=== PATIENT | male | born 1950 | race Native Hawaiian/Other Pacific Islander ===

== ENCOUNTER 2016-12-21 13:52 | Outpatient (CLI) | payer OTHER | END 2016-12-21 19:09 | disposition home or self-care (01) | LOC: RAD 13:52 | DX: M79.605 Pain in left leg (principal); M25.562 Pain in left knee ==

== ENCOUNTER 2019-04-15 15:06 | Outpatient (CLI) | payer OTHER | END 2019-04-15 19:10 | disposition home or self-care (01) | LOC: RAD 15:06 | DX: R22.43 Localized swelling, mass and lump, lower limb, bilateral (principal); I87.2 Venous insufficiency (chronic) (peripheral) ==

== ENCOUNTER 2019-12-25 14:25 | Outpatient (CLI) | payer OTHER | END 2019-12-25 19:07 | disposition home or self-care (01) | LOC: LAB 14:25 | PROVIDERS: ATTEND Physician Assistant Medical | DX: D64.89 Other specified anemias (principal) | CPT/HCPCS: 85014; 85018 ==

== ENCOUNTER 2020-01-16 15:27 | Outpatient (CLI) | payer OTHER | END 2020-01-16 20:10 | disposition home or self-care (01) | LOC: LAB 15:27 | PROVIDERS: ATTEND Physician Assistant Medical | DX: D64.89 Other specified anemias (principal) | CPT/HCPCS: 85014; 85018 ==

== ENCOUNTER 2020-01-28 13:27 | Outpatient (CLI) | payer OTHER | END 2020-01-28 19:58 | disposition home or self-care (01) | LOC: LAB 13:27 | PROVIDERS: ATTEND Physician Assistant Medical | DX: D64.89 Other specified anemias (principal) | CPT/HCPCS: 85014; 85018 ==

== ENCOUNTER 2020-02-02 14:07 | Emergency (ER) | payer OTHER ==
[~2020-02-02] VITALS: Ht 182.9 cm; Wt 71.7 kg
[2020-02-02 14:07] VITALS: TEMP 97.5
[2020-02-02 15:15] LABS: PLATELET COUNT 244 K/uL (142-355)
[2020-02-02 15:27] LABS: POTASSIUM 5.4 mmol/L (3.6-5.2)
[2020-02-02 18:21] VITALS: BP 124/58
== END 2020-02-02 18:49 | disposition home or self-care (01) ==
LOC: ED 14:07
PROVIDERS: Emergency Medicine Emergency Medical Services
DX: D64.89 Other specified anemias (principal); R77.8 Other specified abnormalities of plasma proteins; N18.6 End stage renal disease; Z99.2 Dependence on renal dialysis; Z03.818 Encounter for observation for suspected exposure to other biological agents ruled out
CPT/HCPCS: 80053; 82272; 83735; 84484; 85027; 86850; 86900; 86901; 86922; 87635; 93005; 99283; U0003

== ENCOUNTER 2020-02-04 11:45 | Emergency (ER) | payer OTHER ==
[~2020-02-04] VITALS: Ht 182.9 cm; Wt 76.2 kg
[2020-02-04 12:23] LABS: PLATELET COUNT 224 K/uL (142-355)
[2020-02-04 12:34] LABS: POTASSIUM 6.4 mmol/L (3.6-5.2)
[2020-02-04 12:47] LABS: PARTIAL THROMBOPLASTIN TIME 26.7 SECONDS (24.5-33.6)
[2020-02-04 21:45] VITALS: BP 137/74; TEMP 98.1
== END 2020-02-04 21:45 | disposition home or self-care (01) ==
LOC: ED 11:49
PROVIDERS: Hospitalist
PROC: 30233N1 Transfusion of Nonautologous Red Blood Cells into Peripheral Vein, Percutaneous Approach (ICD-10-PCS; principal; 2020-02-04)
DX: N18.6 End stage renal disease (principal); Z99.2 Dependence on renal dialysis; E87.5 Hyperkalemia; D64.89 Other specified anemias; T82.591A Other mechanical complication of surgically created arteriovenous shunt, initial encounter; I50.9 Heart failure, unspecified
CPT/HCPCS: 36430; 80053; 82550; 83605; 83880; 84484; 85027; 85610; 85730; 86850; 86900; 86901; 86922; 87040; 87077; 87185; 87186; 87205; 93005; 96360; 96375; 99284; J0610; P9016

== ENCOUNTER 2020-02-06 10:40 | Emergency (ER) | payer OTHER ==
[~2020-02-06] VITALS: Ht 182.9 cm; Wt 76.2 kg
[2020-02-06 11:21] LABS: PLATELET COUNT 220 K/uL (142-355)
[2020-02-06 11:25] LABS: POTASSIUM 7.9 mmol/L (3.6-5.2)
== END 2020-02-06 12:48 | disposition expired ==
LOC: ED 10:40
PROVIDERS: Family Medicine
PROC: 5A12012 Performance of Cardiac Output, Single, Manual (ICD-10-PCS; principal; 2020-02-06)
DX: I46.9 Cardiac arrest, cause unspecified (principal); N18.6 End stage renal disease; Z99.2 Dependence on renal dialysis
CPT/HCPCS: 80053; 82550; 84484; 85027; 92950; 94760; 96360; 96365; 96375; 96376; 99285; 99291; J0171; J0461; J1265; J3490